=== PATIENT | female | born 1970 | race Caucasian/White ===

== ENCOUNTER 2017-10-23 10:45 | Emergency (ER) | payer BC ==
--- NOTE | 2017-10-23 11:53 | UC ---
Abdominal Pain Female HPI - HPI Summary HPI Summary: Pt presents with RUQ for the last 3 days. She tells me that 3 days ago she developed sharp pain in her RUQ that radiates to her epigastric region. The pain is worse with eating. She is not nauseous or vomiting and has been eating and drinking as usual. Her bowel movements are formed and regular for her - BMs do not improve or worsen the pain. Denies fever, chills, headache, dizziness, cough, SOB, chest pain, CHEN, palpitations, dysuria, hematuria, vaginal pain or discharge. She tells me that at times over the last 3 days, the pain has been so severe that she has to stop what she is doing and "doubles over" for a minute until the pain lessens. Episodes last <20-30minutes at a time. - History of Current Complaint Chief Complaint: UCAbdominalPain Stated Complaint: ABD PAIN Time Seen by Provider: 10/23/17 11:53 Hx Obtained From: Patient Hx Last Menstrual Period: hyster ?: No Onset/Duration: Sudden Onset Timing: Constant Severity Initially: Moderate Severity Currently: Moderate Pain Intensity: 4 Pain Scale Used: 0-10 Numeric Location: Discrete At: RUQ Radiates: Yes Radiates to: Other - Epigastric Character: Colicy, Cramping, Sharp Aggravating Factor(s): Food Alleviating Factor(s): Position, NPO Allergies/Adverse Reactions: Allergies Allergy/AdvReac Type Severity Reaction Status Date / Time No Known Allergies Allergy Verified 04/25/15 11:02 PMH/Surg Hx/FS Hx/Imm Hx Previously Healthy: Yes - Surgical History Surgical History: Yes Surgery Procedure, Year, and Place: Hysterectomy, 2002, [facility], T&A - Family History Known Family History: Positive: Cardiac Disease, Hypertension - Social History Occupation: Employed Full-time Lives: With Family Alcohol Use: Daily Alcohol Amount: 1/daily Substance Use Type: None Smoking Status (MU): Never Smoked Tobacco - Immunization History Most Recent Influenza Vaccination: no Most Recent Tetanus Shot: 2014 Review of Systems Constitutional: Negative Skin: Negative Eyes: Negative ENT: Negative Respiratory: Negative Cardiovascular: Negative Gastrointestinal: Abdominal Pain - RUQ Genitourinary: Negative Neurovascular: Negative Musculoskeletal: Negative Neurological: Negative Psychological: Negative All Other Systems Reviewed And Are Negative: Yes Physical Exam Triage Information Reviewed: Yes Appearance: Well-Appearing, No Pain Distress, Obese Vital Signs: Initial Vital Signs Temp 98.1 F 10/23/17 11:18 Pulse 67 10/23/17 11:18 Resp 17 10/23/17 11:18 BP 156/77 10/23/17 11:18 Pulse Ox 100 10/23/17 11:18 Vital Signs Reviewed: Yes Eyes: Positive: Conjunctiva Clear. Negative: Conjunctiva Inflamed, Discharge ENT: Positive: Hearing grossly normal, Pharynx normal, TMs normal, Uvula midline. Negative: Pharyngeal erythema, Nasal congestion, Nasal drainage, TM bulging, TM dull, TM red, Tonsillar swelling, Tonsillar exudate, Muffled voice, Hoarse voice, Sinus tenderness Neck: Positive: Supple, Nontender, No Lymphadenopathy Respiratory: Positive: Chest non-tender, Lungs clear, Normal breath sounds, No respiratory distress, No accessory muscle use Cardiovascular: Positive: RRR, No Murmur, Pulses Normal Abdomen Description: Positive: No Organomegaly, Soft, Other: - TPP RUQ that reproduces pain. Positive Licea sign. Negative: CVA Tenderness (R), CVA Tenderness (L), Distended, Guarding, Hepatomegaly, McBurney's Point Tenderness, Pulsatile Mass, Splenomegaly Bowel Sounds: Positive: Present Neurological: Positive: Alert Psychological: Positive: Age Appropriate Behavior Skin: Positive: Other - No ecchymosis, lesions, or rashes on abdomen. Abd Pain Female Course/Dx - Course Course Of Treatment: POC urine was negative. US gallbladder: Contracted gallbladder with likely tumefactive sludge. Echogenic liver consistent with hepatic steatosis. No biliary ductal dilatation is noted. Suspect biliary colic - advised to eat a healthy diet and avoid high fat foods. May take ibuprofen for the pain. Follow up with general surgery as soon as possible. Advised to go to ED if she develops increasing or new symptoms. - Differential Dx/Diagnosis Differential Diagnosis: Appendicitis, Gall Bladder Disease, Peptic Ulcer Disease , Renal Colic, Urinary Tract Infection Provider Diagnoses: Biliary Colic. RUQ pain Discharge - Discharge Plan Condition: Stable Disposition: HOME Patient Education Materials: Biliary Colic (ED) Referrals: No Primary Care Phys,NOPCP [Primary Care Provider] - Jose Headley MD [Medical Doctor] - As Soon As Possible Additional Instructions: If you develop a fever, SOB, chest pain, new or worsening symptoms - please call your PCP or go to the ED. Your blood pressure was mildly elevated at todays visit. Please see your primary provider within 4 weeks for recheck and re-evaluation. 1) Avoid high-fat foods for example: butter, fried foods, vegetable oils, cakes , cheeses, and whole milk. High fat foods may increase your pain. 2) Please call Dr. Headley (General Surgery) at the number below to schedule a follow up appointment. 3) If you develop fever, chills, increasing abdominal pain, change in character or location of your pain, nausea, vomiting, or diarrhea - please go to the ED.
[2017-10-23 13:10] VITALS: BP 140/82
--- NOTE | 2017-10-23 14:04 | RAD ---
Indication: Right upper quadrant pain. Real-time sonography of the right upper quadrant was performed. The liver measures 16 cm in length. It is diffusely increased in echogenicity consistent with hepatic steatosis. The gallbladder is partially contracted with nonshadowing rounded lesions in the gallbladder which may represent tumefactive sludge. No biliary duct dilatation is noted. The common duct measures 3.4 mm. The pancreas head, neck and proximal body demonstrates no mass effect or ductal dilatation. The aorta and inferior vena cava are unremarkable. IMPRESSION: Contracted gallbladder with likely tumefactive sludge. Echogenic liver consistent with hepatic steatosis. No biliary ductal dilatation is noted.
== END 2017-10-23 14:25 | disposition home or self-care (01) ==
LOC: UCEAST 10:45
DX: K80.50 Calculus of bile duct without cholangitis or cholecystitis without obstruction (principal)
CPT/HCPCS: 76705; 81003; 99212; G0463

== ENCOUNTER 2019-07-29 15:59 | Emergency (ER) | payer BC ==
[2019-07-29 16:17] VITALS: BP 138/75
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
== END 2019-07-29 17:13 | disposition home or self-care (01) ==
LOC: UCCORT 15:59
DX: R10.11 Right upper quadrant pain (principal); R10.13 Epigastric pain; R14.2 Eructation
CPT/HCPCS: 99211; G0463